=== PATIENT | female | born 1965 | race Hispanic/Latino ===

== ENCOUNTER 2024-06-27 08:41 | Emergency (ER) | payer OTHER ==
[~2024-06-27] VITALS: Ht 147.3 cm; Wt 86.2 kg
[2024-06-27] MEDS ORDERED: LISINOPRIL2.5 MG PO (09:15)
[2024-06-27] MEDS: KETOROLAC TROMETHAMINE 30 MG/ML VIAL IV STA (10:13)
[2024-06-27] MEDS: SODIUM CHLORIDE 0.9% 1000ML 1,000 ML IV SCH (10:13)
[2024-06-27] MEDS: ONDANSETRON HCL INJ 2MG/ML 2ML 2 MG/ML VIAL IV STA (10:13)
[2024-06-27 10:14] VITALS: PULSE 101; RESP 22
[2024-06-27] MEDS: ALBUTEROL/IPRATROPIUM 3 ML NEB NEB ONE (10:14)
[2024-06-27] MEDS ORDERED: VENTOLIN HFA18 GM INH (11:35)
[2024-06-27 11:36] VITALS: PULSE 78; RESP 16; TEMP 98; O2SAT 94
[2024-06-27] MEDS ORDERED: CEFDINIR300 MG PO (11:37)
[2024-06-27] MEDS ORDERED: PREDNISONE20 MG PO (11:40)
[2024-06-27] MEDS ORDERED: MUCINEX DM ER1 EACH PO (11:41)
[2024-06-27] MEDS: DEXAMETHASONE SOD PHOS INJ 4 MG/ML SDV IV ONE (11:55)
== END 2024-06-27 12:03 | disposition home or self-care (01) ==
LOC: FSED 08:55
DX: R06.02 Shortness of breath (principal); J10.1 Influenza due to other identified influenza virus with other respiratory manifestations; J20.9 Acute bronchitis, unspecified; R05.9 Cough, unspecified; I10 Essential (primary) hypertension
CPT/HCPCS: 71046; 80048; 80076; 81003; 82553; 83880; 84484; 85025; 96374; 96375; 99284; J0696; J1100; J1885; J2405; J7030

== ENCOUNTER 2025-02-06 19:44 | Emergency (ER) | payer OTHER ==
[~2025-02-06] VITALS: Ht 152.4 cm; Wt 87.5 kg
[~2025-02-06 19:44] MED LIST: CEFDINIR300 MG PO; LISINOPRIL2.5 MG PO; MUCINEX DM ER1 EACH PO; PREDNISONE20 MG PO; VENTOLIN HFA18 GM INH
[2025-02-06] MEDS: SODIUM CHLORIDE 0.9% 1000ML 1,000 ML IV SCH (22:43)
[2025-02-06 22:45] VITALS: PULSE 90; RESP 16; TEMP 98.6
[2025-02-06] MEDS ORDERED: BENZONATATE200 MG PO (23:01)
[2025-02-06 23:35] VITALS: BP 149/78; PULSE 90; RESP 16; TEMP 98.6; O2SAT 97
== END 2025-02-06 23:08 | disposition home or self-care (01) ==
LOC: FSED 19:49
DX: R06.02 Shortness of breath (principal); J20.9 Acute bronchitis, unspecified; R05.9 Cough, unspecified; R09.89 Other specified symptoms and signs involving the circulatory and respiratory systems; I10 Essential (primary) hypertension
CPT/HCPCS: 71046; 80048; 80076; 81003; 83880; 84484; 85025; 85379; 93005; 99284; J7030